=== PATIENT | male | born 1990 | race Caucasian/White ===

== ENCOUNTER 2019-12-04 12:54 | Emergency (ER) | payer MEDICAID ==
[~2019-12-04] VITALS: Ht 185.4 cm; Wt 70.0 kg
[2019-12-04] MEDS ORDERED: IBUPROFEN 600MG TABLET PO ONE (15:15)
[2019-12-04 16:15] VITALS: BP 148/79
== END 2019-12-04 16:47 | disposition home or self-care (01) ==
LOC: ER 12:54
DX: M54.5 Low back pain (principal); Z98.890 Other specified postprocedural states
CPT/HCPCS: 72100; 99283

== ENCOUNTER 2019-12-11 11:36 | Emergency (ER) | payer MEDICAID ==
[~2019-12-11] VITALS: Ht 182.9 cm; Wt 70.5 kg
[2019-12-11] MEDS ORDERED: prazosin (11:48)
[2019-12-11] MEDS ORDERED: SERT100T PO (11:48)
[2019-12-11] MEDS ORDERED: KETOROLAC 30MG/ML VIAL IM ONE (12:15)
[2019-12-11] MEDS ORDERED: HYDROCODONE/ACETAMINOPHEN 5/325MG TABLET PO ONE (12:15)
[2019-12-11 12:23] VITALS: BP 123/61
== END 2019-12-11 13:01 | disposition home or self-care (01) ==
LOC: ER 11:36
DX: M54.5 Low back pain (principal); F41.9 Anxiety disorder, unspecified; F32.9 Major depressive disorder, single episode, unspecified; Z98.890 Other specified postprocedural states; Z79.899 Other long term (current) drug therapy
CPT/HCPCS: 96372; 99283; J1885